=== PATIENT | male | born 1995 | race Native Hawaiian/Other Pacific Islander ===

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

== ENCOUNTER 2017-01-25 18:18 | Outpatient (CLI) | payer OTHER | END 2017-01-25 18:30 | disposition short-term general hospital (02) | LOC: AMB 18:18 | DX: S01.411A Laceration without foreign body of right cheek and temporomandibular area, initial encounter (principal); R22.0 Localized swelling, mass and lump, head; V48.0XXA Car driver injured in noncollision transport accident in nontraffic accident, initial encounter; Y92.488 Other paved roadways as the place of occurrence of the external cause | CPT/HCPCS: A0425; A0427 ==

== ENCOUNTER 2017-01-25 18:30 | Observation (INO) | payer OTHER ==
[~2017-01-25] VITALS: Ht 180.3 cm; Wt 102.1 kg
[2017-01-25 18:32] VITALS: BP 146/95; TEMP 98.6
[2017-01-25 19:00] VITALS: BP 141/91
[2017-01-25 19:55] LABS: PLATELET COUNT 183 K/uL (142-355)
[2017-01-25 20:00] VITALS: BP 135/88
[2017-01-25 20:06] LABS: POTASSIUM 3.1 mmol/L (3.6-5.2); SODIUM 142 mmol/L (136-145)
[2017-01-25 21:00] VITALS: BP 133/82; TEMP 98.4
[2017-01-25 22:00] VITALS: BP 122/84
[2017-01-26 01:39] VITALS: BP 130/71; TEMP 97.9; Ht 180.3 cm; Wt 102.1 kg
[2017-01-26 04:00] VITALS: BP 111/58; TEMP 98.2
[2017-01-26 08:00] VITALS: BP 123/69; TEMP 98.3
--- NOTE | 2017-01-26 10:25 | NUR ---
RADIOLOGY AT BS TO TAKE PT FOR CT. PT TO RADIOLOGY VIA WC. NAD NOTED.
--- NOTE | 2017-01-26 11:11 | NUR ---
SILVADENE AND TELFA DRESSING APPLIED TO PTS RIGHT HAND. PT TOLERATED PROCEDURE WELL. MOM AT BS.
[2017-01-26 12:00] VITALS: BP 114/73; TEMP 98.3
[2017-01-26 12:40] LABS: PLATELET COUNT 162 K/uL (142-355)
[2017-01-26 12:47] LABS: SODIUM 144 mmol/L (136-145)
--- NOTE | 2017-01-26 14:40 | NUR ---
PT D/C AND LEFT VIA WC. FAMILY AT SIDE. NAD NOTED.
== END 2017-01-26 14:40 | disposition home or self-care (01) ==
LOC: ED 18:30 → MED/SURG 23:40
PROVIDERS: ADMIT Emergency Medicine
DX: R07.81 Pleurodynia (principal); S00.211A Abrasion of right eyelid and periocular area, initial encounter; V49.88XA Car occupant (driver) (passenger) injured in other specified transport accidents, initial encounter; Y93.89 Activity, other specified; Y92.89 Other specified places as the place of occurrence of the external cause
CPT/HCPCS: 80053; 80307; 81000; 82150; 82550; 83690; 84484; 85027; 99220; 99283; G0378; G0479; Q9963